=== PATIENT | female | born 1975 | race Caucasian/White ===

== ENCOUNTER 2019-01-30 09:46 | Emergency (ER) | payer MEDICAID, OTHER ==
[~2019-01-30] VITALS: Ht 162.6 cm; Wt 70.0 kg
[~2019-01-30 09:46] MED LIST: ACYC800T5 PO; PEG15DRO2 OP; PRED20TA PO
[2019-01-30 09:49] VITALS: Ht 162.6 cm; Wt 70.0 kg
[2019-01-30 11:18] VITALS: BP 139/78; PULSE 80; RESP 20
== END 2019-01-30 11:19 | disposition home or self-care (01) ==
LOC: E/R 09:46
DX: G51.0 Bell's palsy (principal)
CPT/HCPCS: 70450; 81003; 81025; Z7502